=== PATIENT | male | born 1990 | race Caucasian/White ===

== ENCOUNTER 2018-04-07 22:41 | Emergency (ER) | payer SELFPAY ==
[2018-04-07 22:55] VITALS: RESP 20; TEMP 98
[2018-04-07 23:04] LABS: BASOPHILS % (AUTO) 1 % (0-3); EOSINOPHILS % (AUTO) 1 % (0-9); HEMATOCRIT 44 % (39-53); HEMOGLOBIN 14.6 gm/dl (13.5-17.7); LYMPHOCYTES % (AUTO) 11.6 % (10-50); MEAN CORPUSCULAR HEMOGLOBIN 29.5 pg (27.0-32.0); MEAN CORPUSCULAR HGB CONC 33.3 gm/dl (32.0-36.0); MEAN CORPUSCULAR VOLUME 88 fL (80-100); MONOCYTES % (AUTO) 6.8 % (0-12); NEUTROPHILS % (AUTO) 79.8 % (37-80)
[2018-04-07 23:07] LABS: CALCIUM 8.8 mg/dl (8.5-10.1); CARBON DIOXIDE 28.9 mEq/L (21-32); CREATININE 0.87 mg/dl (0.80-1.30); POTASSIUM 3.3 mMol/L (3.5-5.1)
[2018-04-08 01:12] VITALS: BP 151/90; PULSE 102; O2SAT 100
== END 2018-04-08 01:08 | disposition home or self-care (01) | DRG 950 ==
LOC: ED 22:41
DX: Z79.4 Long term (current) use of insulin (principal)
CPT/HCPCS: 36415; 80048; 82962; 85025; 99283